=== PATIENT | male | born 1960 | race Caucasian/White ===

== ENCOUNTER 2021-03-30 11:26 | Emergency (ER) | payer BC, SELFPAY ==
[2021-03-30 12:04] VITALS: BP 183/108; PULSE 88; RESP 16; TEMP 37.1; O2SAT 96; BMI 26.4
[2021-03-30] MEDS: LORazepam 1 MG TABLET 2 MG PO ×2 (12:04→13:37)
--- NOTE | 2021-03-30 12:05 | ED.ALCOHOL ---
HPI - Alcohol General Chief Complaint: ETOH/Substance Use Stated Complaint: seeking detox Time Seen by Provider: 03/30/21 11:33 Source: patient Mode of arrival: ambulatory Limitations: no limitations History of Present Illness HPI narrative: 61-year-old male with a history of daily alcohol abuse and dependence, HTN who presents to the ER from home seeking detox from alcohol. He reports drinking 10 shots a day since the age of 16. He has never been through alcohol withdrawal because he just keeps on drinking. He reports increased depression and increased drinking since June when his from cancer. He denies other drug use aside from occasional marijuana. He is not eating much at all, he just drinks until he passes out every day. He is not suicidal and he has never tried to hurt himself before. He is here seeking help for his alcoholism. He can not remember his last drink but thinks he might have had a couple this morning. He also cannot remember how he got to the emergency department he thinks it might be his sister who brought him in. MD complaint: alcohol dependence and desires rehab Last drink: Unknown Amount of alcohol consumed: Ten shots a day Chronic alcohol use: Yes Previous visits for alcohol intoxication: No Recent trauma: No Associated symptoms: depression Treatments prior to arrival: none Related Data Home Medications Medication Instructions Recorded Confirmed amlodipine 10 mg tablet 1 tab PO DAILY 03/30/21 03/30/21 atenolol 100 mg tablet 1 tab PO QAM 03/30/21 03/30/21 atorvastatin 40 mg tablet 1 tab PO DAILY 03/30/21 03/30/21 escitalopram oxalate 20 mg tablet 1 tab PO DAILY 03/30/21 03/30/21 hydrochlorothiazide 12.5 mg tablet 1 tab PO DAILY 03/30/21 03/30/21 lisinopril 10 mg PO DAILY 03/30/21 03/30/21 trazodone 50 mg tablet 1 tab PO BEDTIME 03/30/21 03/30/21 Allergies Allergy/AdvReac Type Severity Reaction Status Date / Time morphine Allergy Unknown Hives Verified 03/30/21 12:28 Review of Systems Review of Systems: Constitutional: No Fever, No Chills ENT/Mouth: No sore throat, No Rhinorrhea, No Swallowing Difficulty Eyes: No Eye Pain, No Swelling, No Redness Cardiovascular: No Chest Pain, No SOB, No Orthopnea, No Edema Respiratory: No Cough, No Sputum, No Wheezing, No dyspnea Gastrointestinal: No Nausea, No Vomiting, No Diarrhea, No abdominal Pain, No Hematochezia, No Melena Genitourinary: No Dysuria, No Urinary Frequency, No Hematuria Musculoskeletal: No joint pain, No Myalgias Skin: No Skin Lesions, No rash Neuro: No Weakness, No Numbness, No Dizziness, No Headache Psych: No Anxiety/Panic, N+Depression, No SI, No HI, No AH, No VH, +memory issues Heme/Lymph: No Bruising, No Lymphadenopathy Endocrine: No Polyuria, No Polydipsia [facility] Social History Social History Advance Directives: No Advance Directives Information Provided: No Physical Exam Vital Signs: Vital Signs: Last Vital Signs Temp 98.7 F 03/30/21 12:04 Pulse 120 H 03/30/21 17:04 Resp 20 03/30/21 17:04 BP 166/97 H 03/30/21 17:04 Pulse Ox 97 03/30/21 17:04 Body Mass Index 26.4 Appearance: Alert. Oriented X3. No acute distress. Eyes: Pupils equal, round and reactive to light. Scleral injection, no icterus ENT: Pharynx normal. Neck: Normal inspection. Neck supple. CVS: Normal heart rate and rhythm. Pulses normal. Respiratory: No respiratory distress. Breath sounds normal. Abdomen: Soft and nontender. +BS x4 Skin: Skin warm and dry. Normal skin color. Normal skin turgor. No rashes. Extremities: No lower extremity edema. Upper extremity tremor. Neuro: Oriented X 3. No motor deficit. No sensory deficit. Speaking complete sentences, makes eye contact, no suicidal thoughts. Course Course Course Narrative: 61-year-old male presenting to the ER for detox from alcohol. He has been a daily drinker for many many years but denies ever going through alcohol withdrawal. He is tremulous on arrival and does not recall his last alcohol intake. He is anxious and tearful when talking about his . Will give him a dose of Ativan and check his alcohol level. Will check basic labs and urine toxicology. Will get crisis or CARE team to see him. Will monitor CIWA scale and if he has escalating Ativan needs he may require inpatient admission for alcohol withdrawal. Reevaluation(s) Reevaluation #1: Alcohol level elevated at 300. Not in alcohol withdrawal. No further Ativan to be given. Labs show a mild pancytopenia consistent with bone marrow suppression due to chronic alcohol abuse. Labs are otherwise largely unremarkable. Reevaluation #2: Feliciano from the care team in coordination with patient's sister have arranged for the patient to be accepted at a detox center here in [place]. Arrived is expected to pick him up at 19:00. Stable for discharge to detox. MDM - Alcohol Lab Data Result diagrams: 03/30/21 13:24 03/30/21 13:24 Labs: Lab Results 03/30/21 03/30/21 03/30/21 Range/Units 11:52 11:53 13:24 WBC 4.3 L (4.8-10.8) X10*3/uL RBC 3.86 L (4.60-5.80) X10*6/uL Hgb 12.4 L (14.0-18.0) g/dl Hct 37.3 L (42-52) % MCV 96.6 (80-98) fL MCH 32.1 (27.0-33.0) pg MCHC 33.2 (31.0-36.0) g/dl RDW 13.1 (11.0-16.0) % Plt Count 158 L (160-400) X10*3/uL MPV 9.0 L (9.4-12.4) fL Immature Gran % (Auto) 0.2 (0.0-0.4) % Neut % (Auto) 65.9 (45-73) % Lymph % (Auto) 25.6 (20-40) % [place] % (Auto) 6.0 (2-11) % Eos % (Auto) 1.4 (0-4) % Baso % (Auto) 0.9 (0-2) % Lymph # (Auto) 1.1 L (1.2-4.9) X10*3/uL [place] # (Auto) 0.3 (0.1-1.2) X10*3/uL Eos # (Auto) 0.1 (0.0-0.4) X10*3/uL Baso # (Auto) 0.0 (0.0-0.2) X10*3/uL Abs Immat Gran (auto) 0.01 (0.00-0.03) X10*3/uL Absolute Neuts (auto) 2.9 (2.0-8.3) X10*3/uL Absolute Nucleated RBC 0.000 (0.0-0.012) X10*3/uL Nucleated RBC % (auto) 0.0 (0.0-0.2) /100WBC Sodium (135-145) mmol/L Potassium (3.3-5.1) mmol/L Chloride (96-108) mmol/L Carbon Dioxide (22-29) mmol/L Anion Gap (12-20) BUN (9-16) mg/dL Creatinine (0.5-1.4) mg/dL Estim Creat Clear Calc Estimated GFR Random Glucose (60-115) mg/dL Calcium (8.4-10.2) mg/dL Magnesium (1.6-2.6) mg/dL Total Bilirubin (0.0-1.0) mg/dL Direct Bilirubin (0.0-0.5) mg/dL AST (5-37) U/L ALT (0-40) U/L Alkaline Phosphatase (39-117) U/L Total Protein (6.5-8.0) g/dL Albumin (3.5-5.0) g/dL Urine Opiates Screen Not Detected (Not Detect) Urine Fentanyl Screen Not Detected (Not Detect) Ur Barbiturates Screen Not Detected (Not Detect) Ur Phencyclidine Scrn Not Detected (Not Detect) Ur Amphetamines Screen Not Detected (Not Detect) U Benzodiazepines Scrn Not Detected (Not Detect) Urine Cocaine Screen Not Detected (Not Detect) U Marijuana (THC) Screen POSITIVE H (Not Detect) Ethyl Alcohol mg/dL COVID-19 (MYCHAL) Negative (Negative) COVID-19 Clin Com See Note 03/30/21 03/30/21 Range/Units 13:24 13:24 WBC (4.8-10.8) X10*3/uL RBC (4.60-5.80) X10*6/uL Hgb (14.0-18.0) g/dl Hct (42-52) % MCV (80-98) fL MCH (27.0-33.0) pg MCHC (31.0-36.0) g/dl RDW (11.0-16.0) % Plt Count (160-400) X10*3/uL MPV (9.4-12.4) fL Immature Gran % (Auto) (0.0-0.4) % Neut % (Auto) (45-73) % Lymph % (Auto) (20-40) % [place] % (Auto) (2-11) % Eos % (Auto) (0-4) % Baso % (Auto) (0-2) % Lymph # (Auto) (1.2-4.9) X10*3/uL [place] # (Auto) (0.1-1.2) X10*3/uL Eos # (Auto) (0.0-0.4) X10*3/uL Baso # (Auto) (0.0-0.2) X10*3/uL Abs Immat Gran (auto) (0.00-0.03) X10*3/uL Absolute Neuts (auto) (2.0-8.3) X10*3/uL Absolute Nucleated RBC (0.0-0.012) X10*3/uL Nucleated RBC % (auto) (0.0-0.2) /100WBC Sodium 146 H (135-145) mmol/L Potassium 3.6 (3.3-5.1) mmol/L Chloride 106 (96-108) mmol/L Carbon Dioxide 30 H (22-29) mmol/L Anion Gap 14 (12-20) BUN 7 L (9-16) mg/dL Creatinine 0.80 (0.5-1.4) mg/dL Estim Creat Clear Calc 79.1 Estimated GFR > 60 Random Glucose 106 (60-115) mg/dL Calcium 8.9 (8.4-10.2) mg/dL Magnesium 1.5 L (1.6-2.6) mg/dL Total Bilirubin 0.7 (0.0-1.0) mg/dL Direct Bilirubin 0.3 (0.0-0.5) mg/dL AST 64 H (5-37) U/L ALT 29 (0-40) U/L Alkaline Phosphatase 64 (39-117) U/L Total Protein 6.5 (6.5-8.0) g/dL Albumin 4.1 (3.5-5.0) g/dL Urine Opiates Screen (Not Detect) Urine Fentanyl Screen (Not Detect) Ur Barbiturates Screen (Not Detect) Ur Phencyclidine Scrn (Not Detect) Ur Amphetamines Screen (Not Detect) U Benzodiazepines Scrn (Not Detect) Urine Cocaine Screen (Not Detect) U Marijuana (THC) Screen (Not Detect) Ethyl Alcohol 300 H* mg/dL COVID-19 (MYCHAL) (Negative) COVID-19 Clin Com Discharge Plan Discharge Clinical Impression: Alcoholic intoxication Qualifiers: Complication of substance-induced condition: with delirium Qualified Code(s): F10.921 - Alcohol use, unspecified with intoxication delirium Alcohol dependence Qualifiers: Substance use status: unspecified alcohol-induced disorder Qualified Code(s): F10.29 - Alcohol dependence with unspecified alcohol-induced disorder Patient Disposition: Xfer Other Transfer Details: Detox center Instructions: Alcohol Withdrawal (ED), Alcohol Dependence (ED) Additional Instructions: Your being discharged to an alcohol detox center here in [place] Present right to the detox Center from the emergency department. Your lab workup today showed mild decreases in your white blood cell counts, platelets and red blood cell counts. This is due to your chronic alcohol abuse. Recommend abstaining from alcohol. Follow-up with your doctor/ Prescriptions: No Action lisinopril tablet 10 mg PO DAILY RF: 0 atorvastatin 40 mg tablet 1 tab PO DAILY RF: 0 trazodone 50 mg tablet 1 tab PO BEDTIME RF: 0 atenolol 100 mg tablet 1 tab PO QAM RF: 0 amlodipine 10 mg tablet 1 tab PO DAILY RF: 0 escitalopram oxalate 20 mg tablet 1 tab PO DAILY RF: 0 hydrochlorothiazide 12.5 mg tablet 1 tab PO DAILY RF: 0
[2021-03-30 12:20] LABS: COVID-19 Test Negative (Negative)
[2021-03-30 12:24] LABS: Amphetamine Screen Urine Not Detected (Not Detect); Barbiturates, Urine Not Detected (Not Detect); Benzodiazepines Screen Urine Not Detected (Not Detect); Cannabinoid Screen Urine POSITIVE (Not Detect); Fentanyl, urine Not Detected (Not Detect); Opiate Screen Urine Not Detected (Not Detect); Phencyclidine Screen Urine Not Detected (Not Detect)
[2021-03-30 12:27] LABS: Cocaine Screen Urine Not Detected (Not Detect)
[2021-03-30 13:30] LABS: MANUAL DIFF FLAG NO
[2021-03-30 13:31] VITALS: BP 183/108; PULSE 88
[2021-03-30] MEDS: atenoloL 100 MG TABLET PO (13:31)
[2021-03-30] MEDS: amLODIPine Besylate 10 MG TABLET PO (13:31)
[2021-03-30] MEDS: Escitalopram Oxalate 20 MG TABLET PO (13:32)
[2021-03-30 13:36] VITALS: BP 183/108; PULSE 88
[2021-03-30] MEDS: hydroCHLOROthiazide 12.5 MG TABLET PO (13:36)
[2021-03-30] MEDS: lisinopriL 10 MG TABLET PO (13:36)
[2021-03-30 13:38] LABS: Basophils Percent Auto 0.9 % (0-2); Eosinophils Absolute Auto 0.1 X10*3/uL (0.0-0.4); Eosinophils Percent Auto 1.4 % (0-4); Hematocrit 37.3 % (42-52); Hemoglobin 12.4 g/dl (14.0-18.0); Imm Gran Abs Auto 0.01 X10*3/uL (0.00-0.03); Imm Gran Pct Auto 0.2 % (0.0-0.4); Lymphocytes Absolute Auto 1.1 X10*3/uL (1.2-4.9); Lymphocytes Percent Auto 25.6 % (20-40); Mean Corpuscular HGB Conc 33.2 g/dl (31.0-36.0); Mean Corpuscular Hemoglobin 32.1 pg (27.0-33.0); Mean Corpuscular Volume 96.6 fL (80-98); Monocytes Absolute Auto 0.3 X10*3/uL (0.1-1.2); Neutrophils Absolute Auto 2.9 X10*3/uL (2.0-8.3); Neutrophils Percent Auto 65.9 % (45-73); Platelet Count 158 X10*3/uL (160-400); Red Blood Count 3.86 X10*6/uL (4.60-5.80); Red Cell Distribution Width 13.1 % (11.0-16.0); White Blood Count 4.3 X10*3/uL (4.8-10.8)
[2021-03-30 13:45] LABS: Ethanol 300 mg/dL
[2021-03-30 13:49] LABS: Alanine Aminotransferase 29 U/L (0-40); Albumin Level 4.1 g/dL (3.5-5.0); Alkaline Phosphatase 64 U/L (39-117); Anion Gap 14 (12-20); Aspartate Amino Transferase 64 U/L (5-37); Bilirubin Direct 0.3 mg/dL (0.0-0.5); Bilirubin Total 0.7 mg/dL (0.0-1.0); Blood Urea Nitrogen 7 mg/dL (9-16); Calcium 8.9 mg/dL (8.4-10.2); Carbon Dioxide 30 mmol/L (22-29); Chloride 106 mmol/L (96-108); Creatinine Clr Calc Pharmacy 79.1; Estimated Glomerular Filt Rate > 60; Glucose Random 106 mg/dL (60-115); Magnesium 1.5 mg/dL (1.6-2.6); Potassium 3.6 mmol/L (3.3-5.1); Sodium 146 mmol/L (135-145); Total Protein 6.5 g/dL (6.5-8.0)
[2021-03-30] MEDS: Magnesium Oxide 400 MG TABLET 800 MG PO (14:03)
--- NOTE | 2021-03-30 14:47 | MHC.RECOVSUP ---
Recovery Support note: Patient is a 61 year old Guyanese speaking male who presented to [facility] ED with family seeking detox. This automatic typewriter inspector met with patient to discuss substance use and treatment. Patient reports he would like to go to [facility] in [place]. Informed patient that [facility] does not provide detox and that he requires medically supervised detox. Patient is agreeable to transferring to a detox facility. This automatic typewriter inspector conducted an [facility] bedsearch for patient. Patient has been referred to [facility] in [facility] and has been accepted for admission. Petsy courtesy driver ([phone]) reports he will be in the area around 1900 to pick patient up for transport to their facility. Patient's family is aware of plan. Discussed case with patient's RN and ED provider.
[2021-03-30 17:04] VITALS: BP 166/97; PULSE 120; RESP 20; O2SAT 97
[2021-03-30 18:31] VITALS: BP 142/106; PULSE 70; RESP 18; TEMP 37.1; O2SAT 95
== END 2021-03-30 19:50 | disposition home or self-care (01) ==
PROVIDERS: Physician Assistant; Emergency Provider Emergency Medicine; PCP Internal Medicine
DX: F10.29 Alcohol dependence with unspecified alcohol-induced disorder (principal); Y90.8 Blood alcohol level of 240 mg/100 ml or more; Z20.822 Contact with and (suspected) exposure to COVID-19; Z79.899 Other long term (current) drug therapy
CPT/HCPCS: 36415; 80048; 80076; 80307; 82077; 83735; 85025; 87635; 99284